=== PATIENT | female | born 1985 ===

== ENCOUNTER 2018-08-16 06:30 | Day surgery (SDC) | payer BC ==
[2018-08-13 10:51] LABS: BASOPHILS 0.4 % (0-2); EOSINOPHILS 0.6 % (0-7); HEMATOCRIT 40.7 % (36.0-48.0); IMMATURE GRANULOCYTES 0.3 % (0-5); LYMPHOCYTES 29.8 % (15-50); MCH 31.3 pg (26.0-34.0); MCHC 34.4 g/dL (31.0-37.0); MCV 91.1 fL (80.0-100.0); MONOCYTES 9.4 % (2-11); NEUTROPHILS 59.5 % (40-80); RBC 4.47 10x6/uL (4.00-5.40); RDW 12.6 % (11.5-14.5); WBC 7.1 10x3/uL (4.8-10.8)
[2018-08-13 10:54] LABS: PLATELET COUNT 335 10x3/uL (130-400)
[2018-08-13 11:13] LABS: CALC OSMOLALITY 278 mosm/kg (275-300); CALCIUM 8.8 mg/dL (8.5-10.1); CARBON DIOXIDE 27.1 mmol/L (21.0-32.0); CHLORIDE - SERUM 105 mmol/L (98-107); CREATININE - SERUM 0.9 mg/dL (0.6-1.3); GLUCOSE 91 mg/dL (74-106); POTASSIUM - SERUM 4.1 mmol/L (3.5-5.1); SODIUM 140 mmol/L (136-145); UREA NITROGEN 13 mg/dL (7-18); eGFR NON AFRICAN AMERICAN 76 mL/min (90-120)
[~2018-08-16] VITALS: Ht 157.5 cm; Wt 72.1 kg
[2018-08-16 06:54] LABS: HCG URINE NEGATIVE (NEGATIVE)
[2018-08-16 07:02] VITALS: BP 119/76; BMI 29.1
--- NOTE | 2018-08-16 11:00 | NUR ---
PT RECEIVED BY BED TO ROOM FROM RECOVERY ROOM, SHE IS AWAKE AND ALERT, ABLE TO MOVE SELF OVER TO ROOM BED WITHOUT COMPLAINT. BEDSIDE REPORT FROM CRYSTAL COLE RN. IV TO LEFT WRIST INFUSING PER ORDERS, SEGAL TO BEDSIDE DRAIN WITH 100ML CLEAR URINE NOTED TO COLLECTION CANISTER. ABDOMEN SOFT TO TOUCH WITH UMBILCAL AND LOWER LEFT QUAD LAP RICHTER NOTED. BILAT SCD'S PER PROTOCOL IN PLACE AND CONNECTED TO PUMP. SHE DENIES NAUSEA AND REQUEST ICE WATER TO DRINK. SPOUSE AT BEDSIDE. SIDE RAILS UP X 2 WITH PHONE AND CALL LIGHT IN PLACE.
[2018-08-16 11:06] VITALS: BP 113/856
--- NOTE | 2018-08-16 11:30 | NUR ---
PT RESTING TILTED TO HER LEFT SIDE, RATES PAIN AT 4/10. FAMILY AT BEDSIDE. CALLIGHT IN REACH.
--- NOTE | 2018-08-16 11:40 | NUR ---
SURGERY NOTED REVIEWED AND PT RECEIVED TORDAL 30MG IN OR. NEUROTIN 300MG GIVEN PO PER DR ROSEN ORDERS. PT CONTINUE TO BE DROWSY AT THIS TIME, TOLERATING ORAL FLUIDS WITHOUT COMPLAINTS.
[2018-08-16 12:12] VITALS: BP 114/59
--- NOTE | 2018-08-16 12:30 | NUR ---
LARGE ICE WATER PER REQUEST. PT MORE AWAKE AT THIS TIME, UNDERSTANDS THAT SEGAL CATH CAN BE REMOVED WHEN GET TO BE UNDCOMFORTABLE TO HER JUST NOTIFY NURSE. FAMILY AT BEDSIDE. CALL LIGHT IN REACH WITH SIDE RAILS UP X 2.
--- NOTE | 2018-08-16 13:28 | NUR ---
PT MOTHER TO DESK WITH CONCERNS ABOUT HER DAUGHTERS EYE SUDDENLY BECOMING RED AND SLIGHT SWOLLEN, PT STATES THAT SHE HAS BEEN ITCHING HER EYES FREQUENTLY FOR PAST 15-30 MINUTES. WILL NOTIFY ANESTHESIA TO COME EVALUATE.
--- NOTE | 2018-08-16 13:31 | NUR ---
René MIMS [employer] F[employer] MANAGER ON UNIT, REPORT GIVEN OF PT FAMILY MEMBER CONCERN, ANESTHESIA TO ROOM TO EVALUATE AND TALK WITH FAMILY.
--- NOTE | 2018-08-16 13:36 | NUR ---
PER VENTILATION WORKER APPEARS TO BE IRRATION DOES NOT BELIEVE TO BE AN ABRASION FROM ANESTHESIA. PT DENIES QUESTIONS FOR VENTILATION WORKER AT THIS TIME.
--- NOTE | 2018-08-16 13:45 | NUR ---
CALLED FOR PAIN MED. RATES AT 6-7/10 AND STATES SHE IS HAVING SOME CRAMPING AND PRESSURE. MEDS GIVEN CHARTED ON EMAR.
--- NOTE | 2018-08-16 14:18 | NUR ---
CALLED TO ROOM, PT ASKING FOR SEGAL TO BE REMOVED. THIS IS COMPLETED WITH CATH INTACT AND TOTAL OUTPUT OF 1100ML. URINE IS STILL BLUE IN COLOR AND PT STATES HER UNDERSTANDING OF WHY THIS IS AND DENIES CONCERNS.
--- NOTE | 2018-08-16 14:30 | NUR ---
PT EYE NOTED TO APPEAR MORE PUFFY/RED. SHE STATES IT FEELS LIKE SOMETHING IS IN MY EYE AND HURTS TO BLINK. DR GOMEZ NOTIFIED TO COME AND EVALUATED. MD REQUEST THAT FLUORESCEIN SWABS AND ULTRA FERNANDO LIGHT BE ON UNIT FOR HIM TO ASSESS PROPERLY.
--- NOTE | 2018-08-16 14:45 | NUR ---
DR GOMEZ TO ROOM, EQUIPMENT MD REQUESTED BROUGHT TO BEDSIDE. AFTER EXAMINATION OF PT RIGHT EYE MD EXPLAINS THAT YES THERE IS A NOTED SCRATCH, REQUEST THAT SHE WEAR A PATCH FOR NEXT 24HOURS. PT DENIES ANY QUESTIONS AT THIS TIME.
--- NOTE | 2018-08-16 15:15 | NUR ---
EYE PATCH OBTAINED FROM [facility]. AFTER PT CLOSES RIGHT EYE PATCH IS PLACED AND TAPED INTO PLACE. PT STATES UNDERSTANDING TO WEAR LONG POSSIBLE BUT CAN BE REMOVED IF DROPS NEED TO BE PLACED OR WHEN SHOWERS, BUT TO REPLACE SOON POSSIBLE.
[2018-08-16 16:30] VITALS: BP 106/59
--- NOTE | 2018-08-16 16:30 | NUR ---
DR ROSEN CALLS TO CHECK ON PT, STATES IF SHE WISHES TO DISCHARGE HOME AT ANY TIME TONIGHT THAN MAY DO SO OR CAN STAY AND D/C IN THE AM. PT RESTING AT THIS TIME WITH NO DISTRESS, LEFT UNDISTURBED.
--- NOTE | 2018-08-16 17:00 | NUR ---
CALLED TO ROOM. NO ASSISTANCE NEEDED GETTING UP TO BATHROOM, VOIDS 200ML CLEAR BUT BLUEISH COLOR URINE. CHANGED INTO HER CLOTHS. DENIES NAUSEA AND RATES PAIN AT 3/10. JUSTINE MEREDITH AND MARCY PROVIDED PER REQUEST, VISITORS AT BEDSIDE.
--- NOTE | 2018-08-16 18:40 | NUR ---
PT UP TO VOID PER SELF, JUST ASK FOR NURSE TO BE IN ROOM. VOIDS 300ML BLUEISH CLEAR URINE WITHOUT COMPLAINTS.
[2018-08-16 19:52] VITALS: BP 107/68
--- NOTE | 2018-08-16 19:52 | NUR ---
PT REC'D IN BED AT THIS TIME. STATES THAT PAIN IS A 5. PT WITH A SALINE LOCK TO THE LEFT HAND. SITE CLEAR. LUNGS CLEAR. BOWEL SOUNDS PRESENT TO THE RT AND LEFT UPPER QUADRANTS. DECREASED TO THE LEFT AND RIGHT LOWER QUADRANTS. PT STATES THAT SHE HAD NOT PASSED ANY FLATUS BUT SHE HAS BURPED. PT INSTRUCTED TO AMBULATE TO PASS GAS. PT SATATES THAT SHE HAD HAD SOME SHOULDER PAIN. INFORMED PATIENT THAT IS NORMA AND ENCOURAGED PATIENT TO AMBULATE. UNDERSTANDING VERBALIZED. INCISIONS X2 TO THE ABDOMEN (UMBILICUS AND THE LFT LOWER QUAD) INTACT WITH DERMABOND. NO S/S OF INFECTION NOTED. PT VOIDING. TOLERATING PO DIET. WILL CONTINUE TO MONITOR. SIDERAILS UP X2 FOR SAFETY. CALL LIGHT IN PT REACH. Tanvir HERRING RN
--- NOTE | 2018-08-16 20:13 | NUR ---
PT MEDICATED WITH SCHEDULED NEURONTIN AT THIS TIME. WILL CONTINUE TO MONITOR PAIN. Tanvir HERRING RN
--- NOTE | 2018-08-16 21:00 | NUR ---
PT WITH FAMILY IN ROOM AND NO NEEDS VOICED AT THIS TIME. APPROX 75 ML OF URINE EMPTIED AT THIS TIME. WILL CONTINUE TO MONITOR.
[2018-08-16] MEDS ORDERED: NEURONTIN 300300 MG PO (22:08)
[2018-08-16] MEDS ORDERED: PERCOCET 7.5/321 TAB PO (22:09)
[2018-08-16] MEDS ORDERED: MOBIC7.5 MG PO (22:11)
--- NOTE | 2018-08-16 22:30 | NUR ---
PT SLEEPING AT THIS TIME. SIDERAILS UP FOR SAFETY X2 CALL LIGHT IN EASY REACH. Tanvir HERRING RN
--- NOTE | 2018-08-16 22:54 | NUR ---
PT AMBULATED TO DESK TO ASK FOR ICE AND PAIN MEDICATION. PERCOCET 5MG 1 TAB GIVEN FOR PAIN AT THIS TIME. WILL MONITOR. Tanvir HERRING RN
[2018-08-16 23:59] VITALS: BP 116/61
--- NOTE | 2018-08-17 00:11 | NUR ---
PT REC'D IN BED AT THIS TIME. MEDICATED WITH SCHEDULED TORADOL AT THIS TIME. VITAL SIGNS STABLE. 600 ML OF URINE NOTED AT THIS TIME. NO DISTRESS NOTED. Tanvir HERRING RN
--- NOTE | 2018-08-17 01:50 | NUR ---
PT RESTING COMFORTABLY AT THIS TIME. SLEEPING QUIETLY. SIDERAILS UP FOR SAFETY. CALL LIGHT IN PT REACH. Tanvir HERRING RN
[2018-08-17 04:10] VITALS: BP 99/62
--- NOTE | 2018-08-17 04:15 | NUR ---
PT RESTING WELL AT THIS TIME. REPORTS PASSING OF FLATUS THIS AM. PT REPORTS LESS PAIN SINCE PASSING GAS. VITAL SIGNS STABLE. NO ACUTE DISTRESS NOTED. SIDERAILS UP FOR SAFETY X2 CALL LIGHT IN EASY REACH. Tanvir HERRING RN
[2018-08-17 04:48] VITALS: Ht 157.5 cm; Wt 72.1 kg
[2018-08-17 07:19] VITALS: BP 116/74
--- NOTE | 2018-08-17 07:19 | NUR ---
RECEIVED PT LYING SUPINE IN BED. AWAKE. AAO X 3. VSS. HRRR WITHOUT AUDIBLE MURMUR. BBS CLEAR. BS X 4. ABDOMEN SOFT/NON-DISTENDED. PT STATES PASSING GAS. NO BM YET. STATES FEELS BETTER SINCE PASSING GAS THIS AM. 3 LAP INCISIONS WITHOUT REDNESS, SWELLING OR DRAINAGE NOTED. PT STATES HAVING SMALL AMT OF VAGINAL DISCHARGE. STATES MUCH LESS NOW THAN YESTERDAY. PT DENIES SOAKING PAD IN 30 MINUTES. NEG HOMANS' SIGN. PPP. NO EDEMA NOTED TO BLE. SL TO LEFT WRIST. SITE CLEAR. DC'D WITH [place]ATE[place]ON INTACT. PRESSURE BANDAGE TO SITE. PT JOSEPH WELL. PT DENIES PAIN. STATES "SORE". DENIES NEEDS OR C/O. SR UP X2. CALL LIGHT IN REACH.
--- NOTE | 2018-08-17 08:09 | NUR ---
DR ROSEN TO ROOM. VISITS WITH PT.
--- NOTE | 2018-08-17 08:15 | NUR ---
DISCHARGE INSTRUCTIONS GIVEN TO PT. PT VERBALIZES UNDERSTANDING OF ALL INSTRUCTIONS. COPIES GIVEN TO PT. RX FOR NEURONTIN, MOBIC, AND PERCOCET GIVEN TO PT. PT AWAITS RIDE.
--- NOTE | 2018-08-17 08:24 | NUR ---
PT C/O ABDOMINAL PAIN OF "4" ON 0-10 PAIN SCALE. PERCOCET 5/325 2 TABS GIVEN PO ORDERED. PT INSTRUCTED ON MED. VERBALIZES UNDERSTANDING.
--- NOTE | 2018-08-17 09:00 | NUR ---
PT READY FOR DISCHARGE. DISCHARGED IN STABLE CONDITION VIA WHEELCHAIR PER AUXILIARY STAFF TO PRIVATE VEHICLE.
--- NOTE | 2018-08-19 08:23 | OP ---
PATIENT NAME: KATIE MEDICAL RECORD: [id number] :85 LOCATION:D.OPS ADMISSION DATE: SURGEON: VAHID ROSEN MD DATE OF OPERATION: 08/16/2018 PREOPERATIVE DIAGNOSES: 1. Pelvic pain with history of endometriosis. 2. Dysmenorrhea. 3. Uterine prolapse. POSTOPERATIVE DIAGNOSES: 1. Pelvic pain with history of endometriosis. 2. Dysmenorrhea. 3. Uterine prolapse. PROCEDURE: 1. Diagnostic laparoscopy. 2. Total laparoscopic hysterectomy. 3. Left oophorectomy. 4. Bilateral salpingectomy. 5. Uterine vault suspension. 6. Cystoscopy. SURGEON: Vahid Rosen MD CIVIL ENGINEERING SPECIALIST: Tuan Vasquez ANESTHESIOLOGIST: Dr. Ryder. ANESTHESIA: General. FINDINGS: Uterus is unremarkable. The ovaries are unremarkable as well. Both tubes are unremarkable. The uterus prolapses to within 2 cm of the hymenal ring. Vaginal vault is otherwise unremarkable. SPECIMEN REMOVED: Uterus with cervix, left ovary and bilateral tubes. SPECIMEN DISPOSITION: Pathology. ESTIMATED BLOOD LOSS: Less than or equal to 100 cc. FLUIDS: 1200 cc of lactated Ringer's. URINE OUTPUT: 270 cc of clear urine. DRAINS: [id number] discontinued on postoperative coombs. COMPLICATIONS: None. INDICATIONS: The patient is a 33-year-old female with second-degree uterine prolapse and a history of endometriosis, pelvic pain and dysmenorrhea. The patient has negative impact on her quality of life with her cycles. The patient is consented for laparoscopic hysterectomy with left oophorectomy, given her chronic left-sided pain and any indicated procedure. OPERATIVE REPORT [id number] DESCRIPTION OF THE PROCEDURE: After informed consent was assured, the patient was taken to the operating room where anesthetic was obtained. The patient was now prepped and draped after being placed in [facility]. A uterine manipulator was placed and attention was directed to the abdomen where an incision was made and the trocar inserted. Pneumoperitoneum was developed and the patient is in steep Trendelenburg position. Accessory ports are now placed in the right and left lower quadrant. Bowel swept free of the pelvis. With the uterus manipulated and the left tube and ovary drawn to the midline, coagulation cautery was used to separate the infundibulopelvic ligament and dissect underneath the ovary across the round ligament and to the midline on the anterior leaf of the broad ligament. The posterior leaf was now opened, vessel skeletonized, compressed, and coagulated. Vessels were on the left. Attention was directed to the right. Dissection was carried out underneath the right tube through the mesosalpinx, across the uteroovarian and round ligaments. Broad ligament was opened and the bladder flap fully developed. The vessels were skeletonized on the right, compressed, coagulated, and . Using a Harmonic scalpel, the cervix is now removed from its attachments to the vagina from a 6 to 3 o'clock position and then from 6 to 12 completing on the right from 12 to 3. Once the uterus was freed of its attachment to the vagina, it is pulled into the vagina and the pelvis was inspected and found to be hemostatic. Uterus was removed with attached bilateral tubes and left ovary. The specimen was handed to the attendant. The pelvis was irrigated. Using a weighted speculum, vaginal defect is fully observed. Uterosacral ligament on the left was grasped with a long Allis as well on the right, 2-3 cm above the apex of the vagina. The uterosacral ligaments were now transfixed with an Ethibond stitch that goes through left uterosacral ligament, ticking across the peritoneum and up through the right uterosacral ligament. This is now tied into a complex. Using Vicryl stitches, the stitch was placed through the vaginal mucosa, anteriorly through the complex created by the Ethibond and back out into the vagina. This was repeated on the left and right of the midline. The cuff was now closed with interrupted [id number] stitches and the last 2 stitches are the uterosacral transfixing stitches before mentioned. Once this is all secured, the apex of the vagina is supported. Pneumoperitoneum is now reestablished. Inspection reveals adequate hemostasis. Macy was placed over the peritoneum and the raw edges. The pneumoperitoneum was released. All trocars were removed after release of the pneumoperitoneum and the skin reapproximated with subcuticular stitches. Dermabond was applied. The legs were repositioned and a diagnostic cystoscopy was performed with a 30-degree cystoscope. The cystoscope was introduced through the urethra under direct visualization. Methylene blue has been given to the patient. After a few moments, both right and left ureters were noted to excrete blue fluid. The cystoscopy is discontinued. Mauricio catheter is now replaced and the patient was taken down from [facility]. Sponge, lap, needle counts were correct times 2. TRANSINT:[id number] Voice Confirmation ID: [id number] DOCUMENT ID: [id number] VAHID ROSEN MD at 0823 CC: [id number] DICTATION DATE: 08/16/18 1020 WIRED MUSIC OPERATOR: 08/16/18 1336 [facility] 08/17/18 [id number] [place] [address]
== END 2018-08-17 09:00 | disposition home or self-care (01) ==
LOC: D.OPS 06:30 → D.PAN 08:15 → D.OPS 08:15 → D.PAN 08:30 → D.OPS 08:30 → D.LD 11:03 → D.OPS 08-17 09:00
PROVIDERS: Obstetrics & Gynecology
DX: N94.6 Dysmenorrhea, unspecified (principal); N81.2 Incomplete uterovaginal prolapse; N72 Inflammatory disease of cervix uteri; N88.8 Other specified noninflammatory disorders of cervix uteri; N83.02 Follicular cyst of left ovary; Z01.812 Encounter for preprocedural laboratory examination

== ENCOUNTER → 2019-12-15 11:30 | Outpatient (CLI) | payer SELFPAY ==
[~2019-12-15 11:30] MED LIST: MOBIC7.5 MG PO; NEURONTIN 300300 MG PO; PERCOCET 7.5/321 TAB PO
== END | disposition home or self-care (01) ==
LOC: D.LABREF 11:30
PROVIDERS: ATTEND Surgery
DX: D22.5 Melanocytic nevi of trunk (principal)